=== PATIENT | female | born 2000 | race American Indian/Alaskan Native ===

== ENCOUNTER 2019-02-20 17:42 | Emergency (ER) | payer BC ==
[2019-02-20 19:45] LABS: HCG Qualitative,Urine Negative (Negative)
[2019-02-20 20:33] VITALS: BP 131/98
[2019-02-20] MEDS ORDERED: ONDANSETRON 4 MG ODT TAB PO ONE (20:58)
[2019-02-20] MEDS ORDERED: IBUPROFEN 600 MG TAB PO ONE (20:58)
[2019-02-20] MEDS ORDERED: ACETAMINOPHEN 500 MG TAB PO ONE (20:58)
--- NOTE | 2019-02-20 20:58 | XRay Report ---
Right shoulder, 3 views INDICATION: Pain following fall 3 days ago FINDINGS: The joint space is maintained. There is no fracture or dislocation. No spurring or arthriti c change. No bone lesion or periostitis. No significant abnormality. IMPRESSION: Negative study Signer Name: Donte Morin MD Signed: 02/20/2019 8:53 PM Workstation Name: [id number]
--- NOTE | 2019-02-20 21:28 | Emergency Department Report ---
Upper Extremity - HPI Chief Complaint: Shoulder Injury Stated Complaint: SHOULDER PAIN Upper Extremity: Right Shoulder (pain) Occurred When: 2 Days Mechanism: Fall, Other (fell on floor after slipping) Severity: severe Symptoms: Yes Pain with Movement (right shoulder), Yes Limited Range of Movement (due to pain), No Numbness, No Weakness, No Swelling, No Bruising/Ecchymosis, No Laceration or Abrasion Other History: Patient is a 18-year-old -[place] female with no past medical history who presents to the ED with complaint of acute onset persistent severe right shoulder pain after she slipped and fell down on the floor and landed on the right shoulder while coming down the stairs 2 days ago. Patient states that the pain is worse with any active range of motion. Patient denies head or neck injuries, chest pain, shortness of breath, back pain, numbness and tingling or weakness of right arm, dizziness, syncope, loss of consciousness or change in vision. ED Review of Systems ROS: Stated complaint: SHOULDER PAIN Other details as noted in HPI Constitutional: denies: chills, fever Eyes: denies: eye pain, eye discharge, vision change ENT: denies: ear pain, throat pain Respiratory: denies: cough, shortness of breath, wheezing Cardiovascular: denies: chest pain, palpitations Endocrine: no symptoms reported Gastrointestinal: denies: abdominal pain, nausea, diarrhea Genitourinary: denies: urgency, dysuria, discharge Musculoskeletal: arthralgia (right shoulder). denies: back pain, joint swelling Skin: denies: rash, lesions Neurological: denies: headache, weakness, paresthesias Psychiatric: denies: anxiety, depression Hematological/Lymphatic: denies: easy bleeding, easy bruising ED Past Medical Hx - Past Medical History Previous Medical History?: No - Surgical History Past Surgical History?: No - Social History Smoking Status: Never Smoker Substance Use Type: None - Medications Home Medications: Home Medications Medication Instructions Recorded Confirmed Last Taken Type Cyclobenzaprine [Flexeril] 10 mg PO Q8H PRN #15 tablet 02/20/19 Unknown Rx Ibuprofen [Motrin] 600 mg PO Q8H PRN #24 tablet 02/20/19 Unknown Rx Upper Extremity Exam - Exam General: Vital signs noted. No distress. Alert and acting appropriately. Head and Torso: No HEENT Abnormality, No Neck Tenderness, No Chest/Lungs Abnormality, No Abdominal Tenderness, No Back Tenderness Shoulder Exam: Yes Shoulder Tenderness (right ), Yes Clavicle Tenderness (right), No Normal Range of Motion in Shoulder (limited ROM due to pain), No Shoulder Deformity, No AC Joint Tenderness Arm Exam: No Arm/Humerus Tenderness, No Arm Deformity Elbow: Yes Normal Range of Motion in Elbow, No Elbow Tenderness, No Elbow Deformity Forearm: No Forearm Tenderness, No Forearm Deformity, No Pain with Pronation, No Pain with Supination Wrist: Yes Normal ROM in Wrist, No Wrist Tenderness, No Wrist Deformity, No Snuffbox Tenderness, No Pain with Axial Thumb Compression Hand: Yes Normal ROM in Digit(s), No Hand Tenderness, No Hand Deformity, No Digit Tenderness, No Digit(s) Deformity, No Tendon Dysfunction CMS Exam: No Broken Skin, No Normal Distal Pulses, No Normal Capillary Refill, No Normal Distal Sensation ED Course Vital Signs 02/20/19 02/20/19 17:59 20:32 Temperature 98.9 F 98.1 F Pulse Rate 66 92 H Respiratory 18 18 Rate Blood Pressure 124/73 Blood Pressure 131/98 [Right] O2 Sat by Pulse 100 98 Oximetry - Reevaluation(s) Reevaluation #1: 02/20/19 21:26 Patient is a 18-year-old female who presented to the ED with acute onset persistent severe right shoulder pain after she slipped and fell down distress 2 days ago. In the ED, patient is alert and oriented 3 and is not in distress. Patient was treated for pain and right shoulder x-ray shows no acute fractures or subluxations. On reevaluation, patient's pain is well controlled with medication. Patient right shoulder was immobilized on a sling, and patient discharged home on pain medications and muscle relaxants. Patient was advised to return to the ED immediately if symptoms get worse. ED Medical Decision Making - Radiology Data Radiology results: report reviewed, image reviewed Right shoulder shows no acute fractures or subluxations. - Medical Decision Making Patient is a 18-year-old female who presented to the ED with acute onset persistent severe right shoulder pain after she slipped and fell down distress 2 days ago. In the ED, patient is alert and oriented 3 and is not in distress. Patient was treated for pain and right shoulder x-ray shows no acute fractures or subluxations. On reevaluation, patient's pain is well controlled with medication. Patient right shoulder was immobilized on a sling, and patient discharged home on pain medications and muscle relaxants. Patient was advised to return to the ED immediately if symptoms get worse. - Differential Diagnosis Right shoulder sprain; shoulder fracture; muscle strain Critical care attestation.: If time is entered above; I have spent that time in minutes in the direct care of this critically ill patient, excluding procedure time. ED Disposition Clinical Impression: Sprain of shoulder Qualifiers: Encounter type: initial encounter Shoulder sprain type: unspecified sprain Laterality: right Qualified Code(s): S43.401A - Unspecified sprain of right shoulder joint, initial encounter Muscle strain of right shoulder Qualifiers: Encounter type: initial encounter Qualified Code(s): S46.911A - Strain of unspecified muscle, fascia and tendon at shoulder and upper arm level, right arm, initial encounter Disposition: TO HOME OR SELFCARE Is pt being admited?: No Does the pt Need Aspirin: No Condition: Stable Instructions: Muscle Strain (ED), Shoulder Sprain (ED) Additional Instructions: Take medications with food, drink plenty of fluids and follow-up with your primary care physician in 7-10 days for reevaluation. Return to the ED immediately if symptoms get worse. Prescriptions: Cyclobenzaprine [Flexeril] 10 mg PO Q8H PRN #15 tablet PRN Reason: Muscle Spasm Ibuprofen [Motrin] 600 mg PO Q8H PRN #24 tablet PRN Reason: Pain Referrals: [facility] [Outside] - 3-5 Days Time of Disposition: 21:29 Print Language: RUSSIAN
== END 2019-02-20 21:55 | disposition home or self-care (01) ==
LOC: ED 17:42
DX: S43.401A Unspecified sprain of right shoulder joint, initial encounter (principal); W01.0XXA Fall on same level from slipping, tripping and stumbling without subsequent striking against object, initial encounter; Y93.89 Activity, other specified; Y92.89 Other specified places as the place of occurrence of the external cause; Y99.8 Other external cause status
CPT/HCPCS: 81025; Q0162

== ENCOUNTER 2019-07-15 12:43 | Emergency (ER) | payer BC ==
[2019-07-15 13:42] VITALS: BP 122/71
--- NOTE | 2019-07-15 13:44 | Event Note ---
ED Screening Note ED Screening Note: sore throat that began two days ago she has pain with swallowing no difficulty swallowing or tolerating PO intake +subjective fever yesterday no n/v/d no cough PMHx none no allergies to meds no sick contacts LNMP: 06/29/2019 no recent abx
--- NOTE | 2019-07-15 13:45 | Emergency Department Report ---
ED ENT HPI - General Chief complaint: Sore Throat Stated complaint: THROAT PAIN Time Seen by Provider: 07/15/19 13:40 Source: patient Mode of arrival: Ambulatory Limitations: No Limitations - History of Present Illness Initial comments: pt is a 18 yo female who presents with sore throat that began two days ago she has pain with swallowing no difficulty swallowing or tolerating PO intake, she is tolerating her secretions +subjective fever yesterday no n/v/d no cough PMHx none no allergies to meds no sick contacts LNMP: 06/29/2019 no recent abx - Related Data Previous Rx's Medication Instructions Recorded Last Taken Type Cyclobenzaprine [Flexeril] 10 mg PO Q8H PRN #15 tablet 02/20/19 Unknown Rx Ibuprofen [Motrin] 600 mg PO Q8H PRN #24 tablet 02/20/19 Unknown Rx Amoxicillin [Trimox] 500 mg PO BID 10 Days #40 capsule 07/15/19 Unknown Rx Allergies Allergy/AdvReac Type Severity Reaction Status Date / Time No Known Allergies Allergy Verified 02/20/19 17:55 ED Dental HPI - General Chief complaint: Sore Throat Stated complaint: THROAT PAIN Time Seen by Provider: 07/15/19 13:40 Source: patient Mode of arrival: Ambulatory Limitations: No Limitations - Related Data Previous Rx's Medication Instructions Recorded Last Taken Type Cyclobenzaprine [Flexeril] 10 mg PO Q8H PRN #15 tablet 02/20/19 Unknown Rx Ibuprofen [Motrin] 600 mg PO Q8H PRN #24 tablet 02/20/19 Unknown Rx Amoxicillin [Trimox] 500 mg PO BID 10 Days #40 capsule 07/15/19 Unknown Rx Allergies Allergy/AdvReac Type Severity Reaction Status Date / Time No Known Allergies Allergy Verified 02/20/19 17:55 ED Review of Systems ROS: Stated complaint: THROAT PAIN Other details as noted in HPI Comment: All other systems reviewed and negative ED Past Medical Hx - Past Medical History Previous Medical History?: No - Surgical History Past Surgical History?: No - Social History Smoking Status: Never Smoker Substance Use Type: None - Medications Home Medications: Home Medications Medication Instructions Recorded Confirmed Last Taken Type Cyclobenzaprine [Flexeril] 10 mg PO Q8H PRN #15 tablet 02/20/19 Unknown Rx Ibuprofen [Motrin] 600 mg PO Q8H PRN #24 tablet 02/20/19 Unknown Rx Amoxicillin [Trimox] 500 mg PO BID 10 Days #40 capsule 07/15/19 Unknown Rx ED Physical Exam - General Limitations: No Limitations General appearance: alert, in no apparent distress - Head Head exam: Present: atraumatic, normocephalic - Eye Eye exam: Present: normal appearance - ENT ENT exam: Present: mucous membranes moist, TM's normal bilaterally, normal external ear exam, other (bilateral tonsillar hypertrophy with exudates bilaterally, no peritonsillar masses, uvula is midline, no uvular edema or deviation) - Neck Neck exam: Present: lymphadenopathy (very small left anterior cervical LAD) - Respiratory Respiratory exam: Present: normal lung sounds bilaterally. Absent: respiratory distress, wheezes, rales, rhonchi, stridor, chest wall tenderness, accessory muscle use, decreased breath sounds, prolonged expiratory - Cardiovascular Cardiovascular Exam: Present: regular rate, normal rhythm, normal heart sounds. Absent: systolic murmur, diastolic murmur, rubs, gallop - Neurological Exam Neurological exam: Present: alert, oriented X3 - Psychiatric Psychiatric exam: Present: normal affect, normal mood - Skin Skin exam: Present: warm, dry, intact ED Course Vital Signs 07/15/19 13:41 Temperature 97.9 F Pulse Rate 83 Respiratory 16 Rate Blood Pressure 122/71 O2 Sat by Pulse 97 Oximetry ED Medical Decision Making - Medical Decision Making pt is a 18 yo female who presents with sore throat that began two days ago she has pain with swallowing no difficulty swallowing or tolerating PO intake, she is tolerating her secretions +subjective fever yesterday no n/v/d no cough PMHx none no allergies to meds no sick contacts LNMP: 06/29/2019 no recent abx vss on exam: bilateral tonsillar hypertrophy with exudates bilaterally, no peritonsillar masses, uvula is midline, no uvular edema or deviation, very small left anterior cervical LAD Examination consistent with tonsillitis given prescription for amoxicillin. advised to please take medication as prescribed. increase your fluid intake. may use warm salt water gargles or use over the counter throat spray. may alternate tylenol or ibuprofen as needed for pain or fever. follow up with a primary care doctor. follow up with a ENT doctor. return to the emergency room for any new or worsening symptoms . Critical care attestation.: If time is entered above; I have spent that time in minutes in the direct care of this critically ill patient, excluding procedure time. ED Disposition Clinical Impression: Tonsillitis Disposition: [id number] TO HOME OR SELFCARE Is pt being admited?: No Does the pt Need Aspirin: No Condition: Stable Instructions: Tonsillitis (ED) Additional Instructions: please take medication as prescribed. increase your fluid intake. may use warm salt water gargles or use over the counter throat spray. may alternate tylenol or ibuprofen as needed for pain or fever. follow up with a primary care doctor. follow up with a ENT doctor. return to the emergency room for any new or worsening symptoms . Prescriptions: Amoxicillin [Trimox] 500 mg PO BID 10 Days #40 capsule Referrals: KISHA MOREJON MD [Staff Physician] - 2-3 Days [facility] [Provider Group] - 2-3 Days DEBBIE YOON MD [Staff Physician] - 2-3 Days MIAH SHAHID MD [Staff Physician] - 2-3 Days Forms: Work/School Release Form(ED) Time of Disposition: 14:11 Print Language: KAZAKH
== END 2019-07-15 14:00 | disposition home or self-care (01) ==
LOC: ED 12:43
DX: J03.90 Acute tonsillitis, unspecified (principal); Z79.899 Other long term (current) drug therapy
CPT/HCPCS: 99282